=== PATIENT | female | born 1955 | race Hispanic/Latino ===

== ENCOUNTER 2017-04-06 05:51 | Day surgery (SDC) | payer OTHER ==
[2017-04-06] MEDS ORDERED: LACTATED RINGERS 1,000 ML ONE (06:59)
[2017-04-06] MEDS ORDERED: PROPOFOL 200 MG/20 ML VIAL IV ONE (07:00)
[2017-04-06 09:07] VITALS: O2SAT 97
[2017-04-06 09:42] VITALS: BP 136/76; TEMP 97.4
--- NOTE | 2017-04-06 09:45 | OP ---
DATE OF PROCEDURE: 04/06/17 PREPROCEDURE DIAGNOSIS: 1. Heme positive stool. POSTPROCEDURE DIAGNOSIS: 1. Colonic polyp. 2. Diverticulosis. 3. Internal hemorrhoids. PROCEDURE: 1. Colonoscopy with polypectomy. SURGEON: Dustin Sumner MD. SEDATION: Monitored anesthesia care. ESTIMATED BLOOD LOSS: 0 mL. PROCEDURE: Informed consent was obtained prior to sedation. The preprocedure cardiopulmonary assessment was satisfactory. The patient was brought to the Endoscopy Suite and placed in the left lateral decubitus position. The patient was then sedated by the anesthesia team. Digital rectal exam showed prolapsing hemorrhoids. The tip of the Olympus colonoscope was inserted into the rectum and advanced under direct visualization to the cecum as identified by the presence of the appendiceal orifice and ileocecal valve. Preparation of the colon was good. Upon reaching the cecum, the endoscope was slowly withdrawn from the patient with careful attention paid to the entire colonic mucosa for the identification of any flat polyps. In the transverse colon, there was a 12 mm sessile polyp. This was resected with hot snare polypectomy and retrieved for pathology analysis. In the sigmoid colon, there was scattered diverticulosis. A retroflexed view of the anal verge showed large, non- bleeding internal hemorrhoids. The endoscope was then withdrawn from the patient and the procedure terminated. RECOMMENDATION: 1. Discharge the patient home with escort. 2. Advance to regular diet. 3. Resume regular activities. 4. Continue current medications. 5. Followup pathology results. 6. Surveillance colonoscopy due on 3 years' time. #[id number] [facility]
== END 2017-04-06 09:30 | disposition home or self-care (01) ==
LOC: AMB 05:51
PROVIDERS: ATTEND Internal Medicine Gastroenterology
DX: R19.5 Other fecal abnormalities (principal); D12.3 Benign neoplasm of transverse colon; K57.30 Diverticulosis of large intestine without perforation or abscess without bleeding; K64.8 Other hemorrhoids; E11.9 Type 2 diabetes mellitus without complications; Z87.891 Personal history of nicotine dependence; Z79.84 Long term (current) use of oral hypoglycemic drugs; Z79.899 Other long term (current) drug therapy
CPT/HCPCS: 00810; 36416; 45385; 82948; J3490; J7120